=== PATIENT | male | born 1970 | race African-American/Black ===

== ENCOUNTER 2022-09-17 17:36 | Emergency (ER) | payer MEDICAID ==
[~2022-09-17] VITALS: Ht 180.3 cm; Wt 114.0 kg
[2022-09-17 17:39] VITALS: BP 205/109
[2022-09-17] MEDS ORDERED: LISI20TA31 PO (17:46)
[2022-09-17] MEDS ORDERED: HYDROCHLOROTHIAZIDE 25MG TABLET PO ONE (18:45)
[2022-09-17] MEDS ORDERED: LISINOPRIL 20MG TABLET PO ONE (18:45)
[2022-09-17] MEDS ORDERED: LISI20TA31 MT (19:08)
[2022-09-17] MEDS ORDERED: HYDR25TA MT (19:08)
== END 2022-09-17 19:58 | disposition home or self-care (01) ==
LOC: ER 17:48
DX: I10 Essential (primary) hypertension (principal); Z98.890 Other specified postprocedural states
CPT/HCPCS: 93005; 99283